=== PATIENT | female | born 1970 | race Caucasian/White ===

== ENCOUNTER 2021-05-28 23:40 | Emergency (ER) | payer MEDICARE ==
[~2021-05-28 23:40] MED LIST: ABILIFY2 MG PO; ADMELOG SO100 UNIT/1 SQ; ALL DAY ALLERGY10 M2 PO; BASAGLAR K100 UNIT/1 SQ; CELEXA20 MG PO; CORGARD40 MG PO; CYCLOBENZAPRINE5 MG PO; ENULOSE10 GM/15 M PO; FEOSOL325 MG PO; GABAPENTIN400 MG PO; GLUCOPHAGE1000 MG PO; GLUCOTROL5 MG PO; HYDROXYZINE HCL50 MG PO; IBUPROFEN600 MG PO; IBUPROFEN800 MG PO; K-DUR TAB 10 M10 MEQ PO; LASIX40 MG PO; MIRAPEX0.25 MG PO; PEPCID20 MG PO; PERCOCET 5-3251 EACH PO; PRENATAL VITAM1 EAC8 PO; ROBAXIN-750750 MG PO; SPIRONOLACTONE100 MG PO; SYNTHROID150 MCG PO; TRAZODONE HCL50 MG PO; VITAMIN D250000 UNIT PO; VOLTAREN EC 5050 MG PO; WELLBUTRIN 100100 MG PO; XIFAXAN200 MG PO
[2021-05-29 02:55] LABS: HEMOGLOBIN 9.2 gm/dl (12.3-15.3); RED BLOOD COUNT 4.11 M/UL (4.00-5.10); WHITE BLOOD COUNT 10.1 K/UL (4.5-11.0)
[2021-05-29 03:26] LABS: BUN/CREATININE RATIO 10 (0-10)
[2021-05-29] MEDS ORDERED: OMNICEF 300 MG300 MG PO (05:38)
[2021-05-29] MEDS ORDERED: PHENERGAN 25 MG25 M1 PO (05:38)
== END 2021-05-29 05:42 | disposition home or self-care (01) ==
LOC: ER1 23:40
PROVIDERS: Physician Assistant
DX: K52.9 Noninfective gastroenteritis and colitis, unspecified (principal); N39.0 Urinary tract infection, site not specified; K21.9 Gastro-esophageal reflux disease without esophagitis; E11.9 Type 2 diabetes mellitus without complications; E78.5 Hyperlipidemia, unspecified; E07.9 Disorder of thyroid, unspecified; F17.210 Nicotine dependence, cigarettes, uncomplicated
CPT/HCPCS: 36415; 71045; 80053; 80307; 81001; 82140; 82150; 82550; 82553; 83605; 83690; 84484; 85025; 85379; 85610; 85730; 87077; 87081; 87086; 87186; 87880; 99284; Q9967; U0002